=== PATIENT | male | born 1970 | race Caucasian/White ===

== ENCOUNTER 2016-10-22 18:50 | Emergency (ER) | payer BC, OTHER ==
--- NOTE | 2016-10-22 19:58 | ER Document Report ---
HPI - HPI Patient complains to provider of: finger injury Onset: This afternoon Onset/Duration: Sudden Quality of pain: Achy Pain Level: 0 Context: Patient states that he got his left fourth finger caught in a metal breaker and pinched the tip of his finger. Patient with laceration to left fourth fingertip. Associated Symptoms: Other - finger injury Exacerbated by: Denies Relieved by: Denies Similar symptoms previously: No Recently seen / treated by doctor: No - ROS ROS below otherwise negative: Yes Systems Reviewed and Negative: Yes All other systems reviewed and negative - CONSTITUTIONAL Constitutional: DENIES: Fever - GASTROINTESTINAL Gastrointestinal: DENIES: Nausea, Patient vomiting - MUSCULOSKELETAL Musculoskeletal: REPORTS: Extremity pain - DERM Skin Color: Normal Skin Problems: Laceration Past Medical History - General Information source: Patient - Social History Smoking Status: Current Every Day Smoker Frequency of alcohol use: None Drug Abuse: None Occupation: heating and air Lives with: Family Family History: Reviewed & Not Pertinent Patient has suicidal ideation: No Patient has homicidal ideation: No - Medical History Medical History: Negative Renal/ Medical History: Denies: Hx Peritoneal Dialysis Surgical Hx: Negative - Immunizations Immunizations up to date: Yes Vertical Provider Document - CONSTITUTIONAL Agree With Documented VS: Yes Exam Limitations: No Limitations General Appearance: WD/WN, No Apparent Distress - INFECTION CONTROL TRAVEL OUTSIDE OF THE [place] IN LAST 30 DAYS: No - HEENT HEENT: Atraumatic, Normocephalic - NECK Neck: Normal Inspection - RESPIRATORY Respiratory: No Respiratory Distress O2 Sat by Pulse Oximetry: 99 - CARDIOVASCULAR Pulses: Normal: Radial - BACK Back: Normal Inspection - MUSCULOSKELETAL/EXTREMETIES Musculoskeletal/Extremeties: MAEW, Tender - Tenderness to the distal tip of left fourth finger - NEURO Level of Consciousness: Awake, Alert, Appropriate Motor/Sensory: No Motor Deficit - DERM Integumentary: Warm, Dry, Laceration - avulsion lac 1 cm to distal tip of left 4th finger tip Course - Vital Signs Vital signs: Temp Pulse Resp BP Pulse Ox 98.1 F 90 20 138/90 H 99 10/22/16 19:06 10/22/16 19:06 10/22/16 19:06 10/22/16 19:06 10/22/16 19:06 - Diagnostic Test Radiology reviewed: Pending, Image reviewed Procedures - Immobilization Left 4th digit Pre-Proc Neuro Vasc Exam: Normal Immobilizer type: Finger splint (Static) Performed by: RN Post-Proc Neuro Vasc Exam: Normal Alignment checked and good: Yes Discharge - Discharge Clinical Impression: Finger laceration Qualifiers: Encounter type: initial encounter Qualified Code(s): S61.219A - Laceration without foreign body of unspecified finger without damage to nail, initial encounter Condition: Stable Disposition: HOME, SELF-CARE Instructions: Antibiotic Ointment Protection ([facility]), Non-Sutured Laceration ([facility] ), Dressing Instructions for Open Wounds ([facility]) Additional Instructions: Return immediately for any new or worsening symptoms Followup with your primary care provider, call tomorrow to make a followup appointment Daily wound care Follow-up with orthopedic doctor for any continued pain or problems Prescriptions: Cephalexin Monohydrate [Keflex 500 mg Capsule] 500 mg PO Q6H 5 Days Referrals: GI SANCHEZ DO [ACTIVE STAFF] - Follow up as needed
[2016-10-22] MEDS ORDERED: CEPHALEXIN 500 MG CAPSULE PO ONE (20:39)
[2016-10-22 20:59] VITALS: BP 131/78
== END 2016-10-22 20:59 | disposition home or self-care (01) ==
LOC: ER 18:50
DX: S61.215A Laceration without foreign body of left ring finger without damage to nail, initial encounter (principal); W23.0XXA Caught, crushed, jammed, or pinched between moving objects, initial encounter; F17.200 Nicotine dependence, unspecified, uncomplicated
CPT/HCPCS: 99283

== ENCOUNTER 2018-07-08 09:33 | Emergency (ER) | payer SELFPAY ==
--- NOTE | 2018-07-08 10:19 | ER Document Report ---
ED Medical Screen (RME) - General Chief Complaint: Hand Injury Stated Complaint: HAND LACERATION Time Seen by Provider: 07/08/18 10:18 Notes: Patient was drilling this morning and the drill bit hit on something and push the patient's hand into some nails causing cuts and bruising to the dorsal right hand. Patient is right-hand dominant. TRAVEL OUTSIDE OF THE [place] IN LAST 30 DAYS: No - Related Data Allergies/Adverse Reactions: iodine Allergy (Verified 07/08/18 09:40) Sulfa (Sulfonamide Antibiotics) Allergy (Verified 07/08/18 09:40) sulfamethoxazole [From Febra] Allergy (Verified 07/08/18 09:40) trimethoprim [From ] Allergy (Verified 07/08/18 09:40) Past Medical History Renal/ Medical History: Denies: Hx Peritoneal Dialysis Past Surgical History: Reports: Hx Orthopedic Surgery - lt knee - Immunizations Immunizations up to date: Yes Hx Diphtheria, Pertussis, Tetanus Vaccination: Yes - 2015 Physical Exam - Vital signs Vitals: Temp Pulse Resp BP Pulse Ox 99.4 F 91 18 140/88 H 96 07/08/18 09:50 07/08/18 09:50 07/08/18 09:50 07/08/18 09:50 07/08/18 09:50 Course - Vital Signs Vital signs: Temp Pulse Resp BP Pulse Ox 99.4 F 91 18 140/88 H 96 07/08/18 09:50 07/08/18 09:50 07/08/18 09:50 07/08/18 09:50 07/08/18 09:50
--- NOTE | 2018-07-08 10:39 | RADIOLOGY REPORT (SQ) ---
EXAM DESCRIPTION: HAND RIGHT 3 VIEWS COMPLETED DATE/TIME: 07/08/2018 10:32 am REASON FOR STUDY: Cut right hand this a.m. COMPARISON: None. EXAM PARAMETERS: NUMBER OF VIEWS: Three views. TECHNIQUE: AP, lateral and oblique radiographic images acquired of the right hand. LIMITATIONS: None. FINDINGS: MINERALIZATION: Normal. BONES: No acute fracture or dislocation. No worrisome bone lesions. JOINTS: No effusions. SOFT TISSUES: No soft tissue swelling. No foreign body. OTHER: No other significant finding. IMPRESSION: NEGATIVE STUDY OF THE RIGHT HAND. NO RADIOGRAPHIC EVIDENCE OF ACUTE INJURY. TECHNICAL DOCUMENTATION: JOB ID: [id number] [employer]- All Rights Reserved Reading location - IP/workstation name: [email or web address]
--- NOTE | 2018-07-08 10:59 | ER Document Report ---
ED Hand/Wrist Injury - General Chief Complaint: Hand Injury Stated Complaint: HAND LACERATION Time Seen by Provider: 07/08/18 10:18 Notes: 48-year-old nondiabetic male with tetanus up-to-date who was drilling a drill bit when it slipped causing his right hand to hit the wall with some small nails were pointing outward. A cut to the dorsum of his right hand with multiple puncture wounds according to the patient. He denies any weakness or numbness. He states pain mostly to the dorsal aspect of his right fourth knuckle. TRAVEL OUTSIDE OF THE [place] IN LAST 30 DAYS: No - HPI Injury to: Hand Onset: Just prior to arrival Where: Indoors Timing: Constant Quality of pain: Achy Severity: Mild Context: Other - See above - Related Data Allergies/Adverse Reactions: iodine Allergy (Verified 07/08/18 09:40) Sulfa (Sulfonamide Antibiotics) Allergy (Verified 07/08/18 09:40) sulfamethoxazole [From Septra] Allergy (Verified 07/08/18 09:40) trimethoprim [From Septra] Allergy (Verified 07/08/18 09:40) Past Medical History - Social History Smoking Status: Current Every Day Smoker Chew tobacco use (# tins/day): No Frequency of alcohol use: Occasional Drug Abuse: None Family History: Reviewed & Not Pertinent Patient has suicidal ideation: No Patient has homicidal ideation: No Renal/ Medical History: Denies: Hx Peritoneal Dialysis Past Surgical History: Reports: Hx Oral Surgery, Hx Orthopedic Surgery - lt knee - Immunizations Immunizations up to date: Yes Hx Diphtheria, Pertussis, Tetanus Vaccination: Yes - 2015 Physical Exam - Vital signs Vitals: Temp Pulse Resp BP Pulse Ox 99.4 F 91 18 140/88 H 96 07/08/18 09:50 07/08/18 09:50 07/08/18 09:50 07/08/18 09:50 07/08/18 09:50 Notes: Reviewed vital signs and nursing note as charted by RN. CONSTITUTIONAL: Alert and oriented and responds appropriately to questions. Well-appearing; well-nourished EXT: Multiple small abrasion-like lesions to the dorsal aspect of the right hand. Some mild swelling and tenderness to the dorsal aspect of the fourth MCP. Full range of motion of the fingers with normal flexion and extension strength. Good capillary refill and sensation distally Course - Re-evaluation Re-evalutation: Given the history and physical examination we will perform an x-ray of the right hand. We will clean the wound copiously. I do not detect any focal neurological deficits at this moment. 07/08/18 10:54 X-ray of the hand shows no obvious fractures or foreign bodies. We cleaned and irrigated the wound copiously. 07/08/18 11:10 No change in neurologic examination. Patient be placed in a volar splint for comfort with strict return precautions and follow-up with orthopedics. - Vital Signs Vital signs: Temp Pulse Resp BP Pulse Ox 99.4 F 91 18 140/88 H 96 07/08/18 09:50 07/08/18 09:50 07/08/18 09:50 07/08/18 09:50 07/08/18 09:50 Discharge - Discharge Clinical Impression: Contusion of right hand Qualifiers: Encounter type: initial encounter Qualified Code(s): S60.221A - Contusion of right hand, initial encounter Hand abrasion Qualifiers: Encounter type: initial encounter Laterality: right Qualified Code(s): S60.511A - Abrasion of right hand, initial encounter Condition: Good Disposition: HOME, SELF-CARE Additional Instructions: Come back immediately for any increased pain, swelling, fevers, vomiting, w eakness or numbness, discoloration of the fingers, or any other acute problems. Please apply bacitracin to the wounds twice daily and follow-up with orthopedics as we have discussed. Prescriptions: Hydrocodone/Acetaminophen [[place] 5-325 Tablet] 1 each PO Q6H #10 tablet Referrals: LIZ PANTOJA MD [ACTIVE STAFF] - Follow up as needed
[2018-07-08 11:26] VITALS: BP 135/92
== END 2018-07-08 11:48 | disposition home or self-care (01) ==
LOC: ER 09:33
DX: S60.221A Contusion of right hand, initial encounter (principal); S60.511A Abrasion of right hand, initial encounter; W45.0XXA Nail entering through skin, initial encounter; F17.200 Nicotine dependence, unspecified, uncomplicated
CPT/HCPCS: 99283

== ENCOUNTER 2018-08-08 09:01 | Observation (INO) | payer OTHER ==
--- NOTE | 2018-08-08 09:19 | ER Document Report ---
ED Medical Screen (RME) - General Chief Complaint: Shortness Of Breath Stated Complaint: SHORT OF BREATH Time Seen by Provider: 08/08/18 09:18 Notes: Patient is a 48-year-old male that presents to the emergency department for chief complaint of shortness of breath and difficulty breathing. Been having symptoms for a week, seemingly worsening over the past several days. ROS: Other than noted above, the 12 point review of systems was reviewed with the patient and were negative, all pertinent findings are included in the HPI. PHYSICAL EXAMINATION: Vital signs reviewed. GENERAL: Well-appearing, well-nourished and in no acute distress. HEAD: Atraumatic, normocephalic. EYES: Pupils equal round extraocular movements intact, conjunctiva are normal. ENT: Nares patent NECK: Normal range of motion CV: Heart regular rate and rhythm LUNGS: Tachypnea, diffuse wheezing throughout all lung richardson Musculoskeletal: Normal range of motion NEUROLOGICAL: Normal speech PSYCH: Normal mood, normal affect. MDM: Patient seen and examined for rapid initial assessment. Vital signs reviewed. A comprehensive ED assessment and evaluation of the patient, analysis of test results and completion of the medical decision making process will be conducted by additional ED providers. *Note is created using voice recognition software and may contain spelling, syntax or grammatical errors. TRAVEL OUTSIDE OF THE [place] IN LAST 30 DAYS: No - Related Data Allergies/Adverse Reactions: iodine Allergy (Verified 08/08/18 09:02) Sulfa (Sulfonamide Antibiotics) Allergy (Verified 08/08/18 09:02) sulfamethoxazole [From Septra] Allergy (Verified 08/08/18 09:02) trimethoprim [From Febra] Allergy (Verified 08/08/18 09:02) Past Medical History Renal/ Medical History: Denies: Hx Peritoneal Dialysis Past Surgical History: Reports: Hx Oral Surgery, Hx Orthopedic Surgery - lt knee - Immunizations Immunizations up to date: Yes Hx Diphtheria, Pertussis, Tetanus Vaccination: Yes - 2015 Physical Exam - Vital signs Vitals: Temp Pulse Resp BP Pulse Ox 97.9 F 90 38 H 152/94 H 99 08/08/18 09:05 08/08/18 09:05 08/08/18 09:05 08/08/18 09:05 08/08/18 09:05 Course - Vital Signs Vital signs: Temp Pulse Resp BP Pulse Ox 97.9 F 90 38 H 152/94 H 99 08/08/18 09:05 08/08/18 09:05 08/08/18 09:05 08/08/18 09:05 08/08/18 09:05
[2018-08-08] MEDS ORDERED: IPRATROPIUM/ALBUTEROL 0.5-2.5 MG/3 ML AMPUL NEB ONE (09:20)
[2018-08-08] MEDS ORDERED: METHYLPREDNISOLONE INJ 125 MG/2 ML SDV IV ONE (09:20)
[2018-08-08 10:04] LABS: ABSOLUTE BASOPHILS # (AUTO) 0.1 10^3/uL (0.0-0.2); ABSOLUTE EOSINOPHILS # (AUTO) 0.2 10^3/uL (0.0-0.6); BASOPHILS % (AUTO) 0.4 % (0-2); HEMATOCRIT 44.4 % (37.9-51.0); HEMOGLOBIN 15.7 g/dL (13.5-17.0); LYMPHOCYTES % (AUTO) 24.6 % (13-45); MEAN CORPUSCULAR HEMOGLOBIN 32.2 pg (27.0-33.4); MEAN CORPUSCULAR HGB CONC 35.4 g/dL (32.0-36.0); MEAN CORPUSCULAR VOLUME 91 fl (80-97); MONOCYTES % (AUTO) 6.4 % (3-13); PLATELET COUNT 298 10^3/uL (150-450); RED BLOOD COUNT 4.88 10^6/uL (4.35-5.55); RED CELL DISTRIBUTION WIDTH 13.9 % (11.5-14.0); SEGMENTED NEUTROPHILS % (AUTO) 67.6 % (42-78); TOTAL CELLS COUNTED % (AUTO) 100 %; WHITE BLOOD COUNT 16.2 10^3/uL (4.0-10.5)
[2018-08-08] MEDS ORDERED: ALBUTEROL SULFATE 0.083% NEB 2.5 MG/3 ML AMPUL NEB ONE (10:14)
[2018-08-08 10:30] LABS: ALANINE AMINOTRANSFERASE 37 U/L (21-72); ALBUMIN 4.6 g/dL (3.5-5.0); ALKALINE PHOSPHATASE 101 U/L (38-126); ANION GAP 13 (5-19); ASPARTATE AMINO TRANSFERASE 22 U/L (17-59); BILIRUBIN,DIRECT 0.3 mg/dL (0.0-0.4); BILIRUBIN,TOTAL 0.4 mg/dL (0.2-1.3); BLOOD UREA NITROGEN 10 mg/dL (7-20); CALCIUM 10.2 mg/dL (8.4-10.2); CARBON DIOXIDE 21 mmol/L (22-30); CHLORIDE 108 mmol/L (98-107); GLUCOSE 101 mg/dL (75-110); POTASSIUM 3.6 mmol/L (3.6-5.0); SODIUM 141.7 mmol/L (137-145); TOTAL PROTEIN 7.6 g/dL (6.3-8.2)
[2018-08-08 10:39] LABS: NT PRO BNP 16 pg/mL (<125)
--- NOTE | 2018-08-08 10:40 | ER Document Report ---
ED General - General Chief Complaint: Shortness Of Breath Stated Complaint: SHORT OF BREATH Time Seen by Provider: 08/08/18 09:18 TRAVEL OUTSIDE OF THE [place] IN LAST 30 DAYS: No - HPI Notes: Patient is a 48-year-old male that presents to the emergency department for chief complaint of shortness of breath x1 week. Patient states that he was seen by urgent care last Wednesday where he was diagnosed with pneumonia and given azithromycin and steroids for treatment. Patient denies receiving an X-ray at this time. He states that he was feeling a little better, but then when he was on a trip to [place] he had to visit the emergency department on Wednesday for worsening shortness of breath. He received a breathing treatment which provided him some relief, but the symptoms returned on Wednesday morning and persist today. Patient also reports a tightness in his chest. Patient reports worsening of symptoms with lying flat and relief of symptoms with sitting up. He denies pertinent medical history. He denies experiencing symptoms like this in the past. He smokes at least 1 ppd. Patient states he has borderline diabetes and occasionally takes his metformin Past Medical History: Borderline diabetes Past Surgical History: Orthopedic surgeries on knees Social History: Daily tobacco. Denies drug and alcohol Family History: Reviewed and noncontributory for presenting illness Allergies: Reviewed, see documented allergy list. REVIEW OF SYSTEMS: CONSTITUTIONAL : No fever No chills No diaphoresis No recent illness EENT: No vision changes No congestion No sore throat CARDIOVASCULAR: No chest pain No palpitations RESPIRATORY: shortness of breath cough difficulty breathing GASTROINTESTINAL: No abdominal pain No nausea No vomiting No diarrhea GENITOURINARY: No dysuria No hematuria No difficulty urinating MUSCULOSKELETAL: No back pain No leg pain No arm pain SKIN: No rashes No lesions LYMPHATIC: No swollen, enlarged glands. NEUROLOGICAL: No lightheadedness No headache No weakness No paresthesias PSYCHIATRIC: No anxiety No depression PHYSICAL EXAMINATION: Vital signs reviewed, nursing noted reviewed. GENERAL: Well-appearing, well-nourished and in no acute distress. HEAD: Atraumatic, normocephalic. EYES: Eyes appear normal, extraocular movements intact, sclera anicteric, conjunctiva are normal. ENT: nares patent, oropharynx clear without exudates. Moist mucous membranes. NECK: Normal range of motion, supple without lymphadenopathy LUNGS: Breath sounds diminished with wheezing bilaterally. Tachypneic with moderate accessory muscle use and conversational dyspnea HEART: Tachycardic rate and regular rhythm without murmurs ABDOMEN: Soft, nontender, normoactive bowel sounds. No rebound, guarding, or rigidity. No masses appreciated. EXTREMITIES: Nontender, good range of motion, no pitting or edema. NEUROLOGICAL: No focal neurological deficits. Moves all extremities spontaneously Motor and sensory grossly intact on exam. PSYCH: Normal mood, normal affect. SKIN: Warm, Dry, normal turgor, no rashes or lesions noted on exposed skin - Related Data Allergies/Adverse Reactions: iodine Allergy (Verified 08/08/18 09:02) Sulfa (Sulfonamide Antibiotics) Allergy (Verified 08/08/18 09:02) sulfamethoxazole [From Febra] Allergy (Verified 08/08/18 09:02) trimethoprim [From ] Allergy (Verified 08/08/18 09:02) Past Medical History - Social History Smoking Status: Current Every Day Smoker Chew tobacco use (# tins/day): No Frequency of alcohol use: Rare Drug Abuse: None Family History: Reviewed & Not Pertinent Patient has suicidal ideation: No Patient has homicidal ideation: No Renal/ Medical History: Denies: Hx Peritoneal Dialysis Past Surgical History: Reports: Hx Oral Surgery, Hx Orthopedic Surgery - lt knee - Immunizations Immunizations up to date: Yes Hx Diphtheria, Pertussis, Tetanus Vaccination: Yes - 2015 Physical Exam - Vital signs Vitals: Temp Pulse Resp BP Pulse Ox 97.9 F 90 38 H 152/94 H 99 08/08/18 09:05 08/08/18 09:05 08/08/18 09:05 08/08/18 09:05 08/08/18 09:05 Course - Re-evaluation Re-evalutation: 08/08/18 10:40 Vitals reviewed. Nursing notes reviewed. Patient received DuoNeb in triage and had minimal improvement. He was ordered 2 more albuterol treatments as well as Solu-Medrol. Patient does have a history of tobacco use and likely undiagnosed COPD. He also reports travel back and forth to [place] frequenly. Patient does have a leukocytosis but was just recently on steroids. He denied any associated fevers and is afebrile here. Patient placed on 2 L nasal cannula oxygen for O2 sat of 87% on room air. He is now currently at 97% on the 2 L nasal cannula. 08/08/18 12:50 Patient reevaluated and did have improvement after the albuterol. He is oxygenating well on 2 L nasal cannula. His tachypnea has improved. His lung sounds are still wheezing diffusely. Patient's x-ray shows lingular pneumonia and he was given IV antibiotics. He does have a leukocytosis which is likely related to recent steroid use as well as his pneumonia. After oxygen and aerosols his tachypnea and tachycardia resolved and he is not septic therefore blood cultures are not obtained. Patient has failed outpatient management with azithromycin and steroids and is still requiring oxygen therefore he will be admitted to the hospital for further care. Case discussed with Dr. Peck who is accepted admission. Laboratory 08/08/18 08/08/18 08/08/18 09:38 09:38 09:38 WBC 16.2 H RBC 4.88 Hgb 15.7 Hct 44.4 MCV 91 MCH 32.2 MCHC 35.4 RDW 13.9 Plt Count 298 Seg Neutrophils % 67.6 Lymphocytes % 24.6 Monocytes % 6.4 Eosinophils % 1.0 Basophils % 0.4 Absolute Neutrophils 11.0 H Absolute Lymphocytes 4.0 Absolute Monocytes 1.0 Absolute Eosinophils 0.2 Absolute Basophils 0.1 D-Dimer Carbonic Acid HCO3/H2CO3 Ratio ABG pH ABG pCO2 ABG pO2 ABG HCO3 ABG Total CO2 ABG O2 Saturation ABG Base Excess FiO2 Sodium 141.7 Potassium 3.6 Chloride 108 H Carbon Dioxide 21 L Anion Gap 13 BUN 10 Creatinine 0.86 Est GFR ( Amer) > 60 Est GFR (Non-Af Amer) > 60 Glucose 101 Calcium 10.2 Total Bilirubin 0.4 Direct Bilirubin 0.3 Neonat Total Bilirubin Not Reportable Neonat Direct Bilirubin Not Reportable Neonat Indirect Bili Not Reportable AST 22 ALT 37 Alkaline Phosphatase 101 Troponin I < 0.012 NT-Pro-B Natriuret Pep 16 Total Protein 7.6 Albumin 4.6 08/08/18 08/08/18 09:38 10:44 WBC RBC Hgb Hct MCV MCH MCHC RDW Plt Count Seg Neutrophils % Lymphocytes % Monocytes % Eosinophils % Basophils % Absolute Neutrophils Absolute Lymphocytes Absolute Monocytes Absolute Eosinophils Absolute Basophils D-Dimer < 0.27 Carbonic Acid 1.01 L HCO3/H2CO3 Ratio 22:1 ABG pH 7.45 ABG pCO2 33.4 L ABG pO2 70.7 L ABG HCO3 22.8 ABG Total CO2 23.8 ABG O2 Saturation 95.1 ABG Base Excess -0.3 FiO2 2L Sodium Potassium Chloride Carbon Dioxide Anion Gap BUN Creatinine Est GFR ( Amer) Est GFR (Non-Af Amer) Glucose Calcium Total Bilirubin Direct Bilirubin Neonat Total Bilirubin Neonat Direct Bilirubin Neonat Indirect Bili AST ALT Alkaline Phosphatase Troponin I NT-Pro-B Natriuret Pep Total Protein Albumin Chest X-Ray 08/08/18 09:19 IMPRESSION: Atelectasis or early pneumonia in the lingula. - Vital Signs Vital signs: Temp Pulse Resp BP Pulse Ox 97.9 F 90 19 121/71 93 08/08/18 09:05 08/08/18 09:05 08/08/18 11:10 08/08/18 11:10 08/08/18 11:10 - Laboratory Result Diagrams: 08/08/18 09:38 08/08/18 09:38 Laboratory results interpreted by me: 08/08/18 08/08/18 08/08/18 09:38 09:38 10:44 WBC 16.2 H Absolute Neutrophils 11.0 H Carbonic Acid 1.01 L ABG pCO2 33.4 L ABG pO2 70.7 L Chloride 108 H Carbon Dioxide 21 L Discharge - Discharge Clinical Impression: Lingular pneumonia, Hypoxia Condition: Stable Disposition: ADMITTED INPATIENT Admitting Provider: Hospitalist Unit Admitted: Telemetry
[2018-08-08 10:42] LABS: TROPONIN I < 0.012 ng/mL
[2018-08-08 10:56] LABS: ARTERIAL BLOOD BASE EXCESS -0.3 mmol/L; ARTERIAL BLOOD H2CO3 1.01 mmol/L (1.05-1.35); ARTERIAL BLOOD HCO3 22.8 mmol/L (20-24); ARTERIAL BLOOD O2 SATURATION 95.1 % (94-98); ARTERIAL BLOOD PCO2 33.4 mmHg (35-45); ARTERIAL BLOOD PH 7.45 (7.35-7.45); ARTERIAL BLOOD PO2 70.7 mmHg (80-100); ARTERIAL BLOOD TOTAL CO2 23.8 mmol/L (23-27)
[2018-08-08 10:57] LABS: ARTERIAL BLOOD FIO2 2L
--- NOTE | 2018-08-08 11:37 | RADIOLOGY REPORT (SQ) ---
EXAM DESCRIPTION: CHEST 2 VIEWS COMPLETED DATE/TIME: 08/08/2018 11:12 am REASON FOR STUDY: cough, shortness of breath COMPARISON: 2008 EXAM PARAMETERS: NUMBER OF VIEWS: two views TECHNIQUE: Digital Frontal and Lateral radiographic views of the chest acquired. RADIATION DOSE: NA LIMITATIONS: none FINDINGS: LUNGS AND PLEURA: Patchy increased parenchymal density lateral to the left heart border, p ossibly in the lingula or left lower lobe. Ipsilateral volume loss. No effusions. MEDIASTINUM AND HILAR STRUCTURES: No masses or contour abnormalities. HEART AND VASCULAR STRUCTURES: Heart normal size. No evidence for failure. BONES: No acute findings. HARDWARE: None in the chest. OTHER: No other significant finding. IMPRESSION: Atelectasis or early pneumonia in the lingula. TECHNICAL DOCUMENTATION: JOB ID: [id number] [employer]- All Rights Reserved Reading location - IP/workstation name: [email or web address]
[2018-08-08] MEDS ORDERED: CEFTRIAXONE INJ 1000 MG VIAL IV ONE (12:03)
[2018-08-08] MEDS ORDERED: VANCOMYCIN HCL INJ 1000 MG VIAL IV ONE (12:03)
--- NOTE | 2018-08-08 13:01 | EKG REPORT ---
SEVERITY:- NORMAL ECG - SINUS RHYTHM : Confirmed by: María Earl MD 08-Aug-2018 13:01:34
--- NOTE | 2018-08-08 13:50 | PDOC H&P ---
History of Present Illness Admission Date/PCP: 08/08/18 12:57 Patient complains of: SOB History of Present Illness: FACUNDO YU JR is a 48 year old male with no significant PMH aside from pre DM and chronic heavy smoking (1 ppd) who presented with increasing SOB. He says he developed minimally productive cough 2 weeks ago and was seen in an urgent care where he was treated for possible pneumonia and was given a Zpak and PO steroids. He says he did not get singificant relief. He went to [place] several days ago and was told he has no pneumonia on CXR. He says he continued to have worsening SOB. In the ER, he was noted to have wheezing bilaterally and CXR shows lingular pneumonia. He reportedly also dropped to the 80s in saturation on room air. He got breathing treatments and steroids and reported significant relief. He denies previous diagnosis of COPD. Past Surgical History Past Surgical History: Reports: Orthopedic Surgery - lt knee Social History Smoking Status: Current Every Day Smoker Family History Family History: Reviewed & Not Pertinent Parental Family History Reviewed: Yes - no premature CAD Children Family History Reviewed: No Sibling(s) Family History Reviewed.: No Medication/Allergy Home Medications: Guaifenesin [Mucinex] 600 mg PO BID 08/08/18 Metformin HCl 500 mg PO Q12 08/08/18 Allergies/Adverse Reactions: iodine Allergy (Verified 08/08/18 09:02) Sulfa (Sulfonamide Antibiotics) Allergy (Verified 08/08/18 09:02) sulfamethoxazole [From Septra] Allergy (Verified 08/08/18 09:02) trimethoprim [From Septra] Allergy (Verified 08/08/18 09:02) Review of Systems All systems: reviewed and no additional remarkable complaints except as stated - as mentioned in HPI Physical Exam Vital Signs: Temp Pulse Resp BP Pulse Ox 97.9 F 90 19 121/71 93 08/08/18 09:05 08/08/18 09:05 08/08/18 11:10 08/08/18 11:10 08/08/18 11:10 Intake & Output 08/07/18 08/08/18 08/09/18 06:59 06:59 06:59 Weight 233 lb 4 oz General appearance: PRESENT: no acute distress, well-developed, well-nourished Head exam: PRESENT: atraumatic, normocephalic Eye exam: PRESENT: conjunctiva pink, EOMI, PERRLA. ABSENT: scleral icterus Ear exam: PRESENT: normal external ear exam Mouth exam: PRESENT: moist, tongue midline Neck exam: ABSENT: carotid bruit, JVD, lymphadenopathy, thyromegaly Respiratory exam: PRESENT: rhonchi. ABSENT: rales, wheezes Pulses: PRESENT: normal dorsalis pedis pul GI/Abdominal exam: PRESENT: normal bowel sounds, soft. ABSENT: distended, guarding, mass, organolmegaly, rebound, tenderness Rectal exam: PRESENT: deferred Neurological exam: PRESENT: alert, awake, oriented to person, oriented to place, oriented to time, oriented to situation, CN II-XII grossly intact. ABSENT: motor sensory deficit Results Laboratory Results: 08/08/18 09:38 08/08/18 09:38 08/08/18 08/08/18 08/08/18 09:38 09:38 10:44 WBC 16.2 H RBC 4.88 Hgb 15.7 Hct 44.4 MCV 91 MCH 32.2 MCHC 35.4 RDW 13.9 Plt Count 298 Seg Neutrophils % 67.6 Lymphocytes % 24.6 Monocytes % 6.4 Eosinophils % 1.0 Basophils % 0.4 Absolute Neutrophils 11.0 H Absolute Lymphocytes 4.0 Absolute Monocytes 1.0 Absolute Eosinophils 0.2 Absolute Basophils 0.1 Carbonic Acid 1.01 L HCO3/H2CO3 Ratio 22:1 ABG pH 7.45 ABG pCO2 33.4 L ABG pO2 70.7 L ABG HCO3 22.8 ABG O2 Saturation 95.1 ABG Base Excess -0.3 FiO2 2L Sodium 141.7 Potassium 3.6 Chloride 108 H Carbon Dioxide 21 L Anion Gap 13 BUN 10 Creatinine 0.86 Est GFR ( Amer) > 60 Est GFR (Non-Af Amer) > 60 Glucose 101 Calcium 10.2 Total Bilirubin 0.4 AST 22 ALT 37 Alkaline Phosphatase 101 Total Protein 7.6 Albumin 4.6 08/08/18 09:38 Troponin I < 0.012 NT-Pro-B Natriuret Pep 16 Impressions: Chest X-Ray 08/08/18 09:19 IMPRESSION: Atelectasis or early pneumonia in the lingula. Assessment & Plan - Diagnosis (1) Acute respiratory failure with hypoxia Is this a current diagnosis for this admission?: Yes Plan: Secondary to pneumonia and possible COPD exacerbation. Currently saturating well on 2 lpm via NC. (2) Lingular pneumonia Is this a current diagnosis for this admission?: Yes Plan: Start Levaquin. Will order sputum culture as well. Will check a chest CT to further assess lung parenchyma. (3) COPD exacerbation Is this a current diagnosis for this admission?: Yes Plan: Start IV steroids, scheduled breathing treatments. Will order a bedside screening PFT. - Time Time Spent: 30 to 50 Minutes
--- NOTE | 2018-08-08 14:54 | RADIOLOGY REPORT (SQ) ---
EXAM DESCRIPTION: CT CHEST WITHOUT COMPLETED DATE/TIME: 08/08/2018 2:33 pm REASON FOR STUDY: hypoxia, sob COMPARISON: None. TECHNIQUE: CT scan performed of the chest without intravenous contrast. Images reviewed with lung, soft tissue and bone windows. Reconstructed coronal and sagittal MPR images reviewed. All images st ored on PACS. All CT scanners at this facility use dose modulation, iterative reconstruction, and/or weight based d osing when appropriate to reduce radiation dose to as low as reasonably achievable (ALARA). [facility]: Dose Right [facility]: CareDose [facility]: Dose Right [facility]: Teradose 4D [facility]: Mobcart RADIATION DOSE: CT Rad equipment meets quality standard of care and radiation dose reduction techniq ues were employed. CTDIvol: 19.8 mGy. DLP: 750 mGy-cm. mGy. LIMITATIONS: No technical limitations. FINDINGS: LUNGS AND PLEURA: Mild ground-glass attenuation in the right lower lobe. No evidence of c onsolidation or air bronchograms. No effusions. HILAR AND MEDIASTINAL STRUCTURES: No identified masses or abnormal nodes. No obvious aneurysm. HEART AND VASCULAR STRUCTURES: No aneurysm. No pericardial effusion. UPPER ABDOMEN: No significant findings. Limited exam. THYROID AND OTHER SOFT TISSUES: No masses. No adenopathy. BONES: No significant finding. HARDWARE: None in the chest. OTHER: No other significant findings. IMPRESSION: Atelectasis. No infiltrate. TECHNICAL DOCUMENTATION: JOB ID: [id number] Quality ID # [id number]: Final reports with documentation of one or more dose reduction techniques (e.g., Au tomated exposure control, adjustment of the mA and/or kV according to patient size, use of iterative reconstruction technique) 2010 [employer]- All Rights Reserved Reading location - IP/workstation name: [email or web address]
[2018-08-08 15:14] LABS: A TYPE INFLUENZA AG NEGATIVE (NEGATIVE); B INFLUENZA AG NEGATIVE (NEGATIVE)
[2018-08-08] MEDS: IPRATROPIUM/ALBUTEROL 0.5-2.5 MG/3 ML AMPUL NEB SCH ×2 (16:46→20:17)
[2018-08-08] MEDS ORDERED: LEVOFLOXACIN 750 MG/D5W RTU 750 MG/150 ML RTUPB IV SCH (18:00)
[2018-08-08] MEDS: METHYLPREDNISOLONE INJ 40 MG/1 ML SDV IV SCH (21:20)
[2018-08-09] MEDS: IPRATROPIUM/ALBUTEROL 0.5-2.5 MG/3 ML AMPUL NEB SCH ×3 (00:05→09:28)
[2018-08-09] MEDS ORDERED: FONDAPARINUX SODIUM INJ 2.5 MG/0.5 ML DISP.SYRIN SUBCUT SCH (08:00)
[2018-08-09 09:09] VITALS: BP 110/71
[2018-08-09] MEDS: METHYLPREDNISOLONE INJ 40 MG/1 ML SDV IV SCH (09:30)
--- NOTE | 2018-08-09 14:27 | PDOC DISCHARGE SUMMARY ---
General - Admit/Disc Date/PCP Admission Date/Primary Care Provider: 08/08/18 12:57 Discharge Date: 08/09/16 - Patient signed AMA - Discharge Diagnosis (1) Acute respiratory failure with hypoxia Is this a current diagnosis for this admission?: Yes Summary: Secondary to pneumonia and possible COPD exacerbation. Currently saturating well on 2 lpm via NC. 08/09/2018 patient was admitted for acute respiratory failure with hypoxia most likely secondary to pneumonia/COPD exacerbation. Patient is signed AMA left the hospital we explained to him in detail that leaving the hospital without completion of the therapy is not beneficial to his health he understood the risks and left the hospital by signing AMA. (2) COPD exacerbation Is this a current diagnosis for this admission?: Yes Summary: 08/09/2018-patient is admitted for COPD exacerbation he is on scheduled breathing treatments, IV steroids pulmonary function test was ordered. But the patient signed AMA and left the hospital by saying he is perfectly fine now does not need to be in the hospital. We try to explain to him and convince him to stay in the hospital for at least another day he declined signed AMA papers and left the hospital. (3) Lingular pneumonia Is this a current diagnosis for this admission?: Yes Summary: 08/09/2018 patient was admitted with pneumonia started on Levaquin patient left the hospital by signing AMA. - Additional Information Resuscitation Status: Full Code Home Medications: Guaifenesin [Mucinex] 600 mg PO BID 08/08/18 Metformin HCl 500 mg PO Q12 08/08/18 History of Present Illness History of Present Illness: FACUNDO YU JR is a 48 year old male 48 year old male with no significant PMH aside from pre DM and chronic heavy smoking (1 ppd) who presented with increasing SOB. He says he developed minimally productive cough 2 weeks ago and was seen in an urgent care where he was treated for possible pneumonia and was given a Zpak and PO steroids. He says he did not get singificant relief. He went to [place] several days ago and was told he has no pneumonia on CXR. He says he continued to have worsening SOB. In the ER, he was noted to have wheezing bilaterally and CXR shows lingular pneumonia. He reportedly also dropped to the 80s in saturation on room air. He got breathing treatments and steroids and reported significant relief. He denies previous diagnosis of COPD. Physical Exam Vital Signs: Temp Pulse Resp BP Pulse Ox 97.9 F 71 16 110/71 99 08/09/18 07:38 08/09/18 07:38 08/09/18 07:38 08/09/18 07:38 08/09/18 07:38 Intake & Output 08/08/18 08/09/18 08/10/18 06:59 06:59 06:59 Intake Total 1702 Balance 1702 Weight 108.2 kg General appearance: PRESENT: no acute distress Head exam: PRESENT: atraumatic Eye exam: PRESENT: PERRLA Mouth exam: PRESENT: dry mucosa Neck exam: ABSENT: carotid bruit, JVD, lymphadenopathy, thyromegaly Respiratory exam: PRESENT: decreased breath sounds Cardiovascular exam: PRESENT: RRR. ABSENT: diastolic murmur, rubs, systolic murmur GI/Abdominal exam: PRESENT: normal bowel sounds, soft. ABSENT: distended, guarding, mass, organolmegaly, rebound, tenderness Extremities exam: PRESENT: full ROM. ABSENT: calf tenderness, clubbing, pedal edema Neurological exam: PRESENT: alert, awake, oriented to person, oriented to place, oriented to time, oriented to situation, CN II-XII grossly intact. ABSENT: motor sensory deficit Psychiatric exam: PRESENT: appropriate affect, normal mood. ABSENT: homicidal ideation, suicidal ideation Results Laboratory Results: 08/08/18 09:38 08/08/18 09:38 08/08/18 09:38 Troponin I < 0.012 NT-Pro-B Natriuret Pep 16 Impressions: Chest CT 08/08/18 00:00 IMPRESSION: Atelectasis. No infiltrate. Chest X-Ray 08/08/18 09:19 IMPRESSION: Atelectasis or early pneumonia in the lingula. Qualifiers - * PATIENT BEING DISCHARGED WITH ANY OF THE FOLLOWING DIAGNOSIS: No VTE patient discharged on overlapping Therapy?: No
--- NOTE | 2018-08-12 12:26 | Pulmonary Function Test ---
Pulmonary Function Test Date of Procedure:: 08/12/18 INDICATION:: Dyspnea Referring Provider: Dr. Kyle Peck - Report Spirometry: FVC 4.49 L 94% FEV1 3.53 L 94% FEV1/FVC % 79 predicted 79 FEF 25-75% 4.14 L 120% Impression: Normal spirometry
== END 2018-08-09 11:30 | disposition left against medical advice (07) ==
LOC: ER 09:01 → INTOOBSV 12:57 → EH 12:57 → 4N 16:15
PROVIDERS: ADMIT Internal Medicine; ATTEND Internal Medicine
DX: J96.01 Acute respiratory failure with hypoxia (principal); J44.1 Chronic obstructive pulmonary disease with (acute) exacerbation; J18.9 Pneumonia, unspecified organism; F17.210 Nicotine dependence, cigarettes, uncomplicated; Z53.21 Procedure and treatment not carried out due to patient leaving prior to being seen by health care provider; R00.0 Tachycardia, unspecified; D72.829 Elevated white blood cell count, unspecified; R73.03 Prediabetes; Z79.84 Long term (current) use of oral hypoglycemic drugs
CPT/HCPCS: 93005; 94640 ×4; 99285; 96375; 96365; 36415; 87040; 82803; 85025; 80053; 84484; 85379; 87804; 83880; 71046; 71250; 93010; 94010; G0378 ×3; J2920 ×2; J2930; J0696; J3490; J3370; J1956; J7620 ×2